=== PATIENT | female | born 1965 | race Caucasian/White ===

== ENCOUNTER 2017-06-01 01:33 | Emergency (ER) | payer BC, OTHER ==
[~2017-06-01 01:33] MED LIST: ALBU6.7H INH; BLOOD THINNER PO; CHOLESTEROL PILL PO; DEPA500T PO; DOXY100T PO; HORMONE PILL PO; NEXI40CA PO; PRED50TA PO
[2017-06-01 01:35] VITALS: BP 136/61; PULSE 56; RESP 16; TEMP 97.5; O2SAT 96
--- NOTE | 2017-06-01 04:51 | PD ---
HPI Chief Complaint: Skin Problem Time Seen by Provider: 04:51 Travel History International Travel<30 days: No Contact w/Intl Traveler<30days: No Traveled to known affect area: No History of Present Illness HPI 52 year-old female presents to the emergency department for evaluation of cat bite to the right forearm and wrist 2 days ago. Patient states last tetanus immunization was 4 years ago. Patient states that she's had subjective tenderness in the right axilla. Patient states she has not noticed any drainage. Patient states that is right-handed. Patient states that her cat is healthy and current on vaccines. PFSH Past Medical History Narrative Medical CAD dyslipidemia asthma sleep apnea tobacco use marijuana use Asthma: Yes High Cholesterol: Yes Coronary Artery Disease: Yes Diminished Hearing: No Gastrointestinal Disorders: Yes (Dyslipidemia) Seizures: Yes Tetanus Vaccination: < 5 Years ?: Not Past Surgical History Appendectomy: Yes Cholecystectomy: Yes Tonsillectomy: Yes (T& A) Other Surgery: Yes (C5-C6 SX) Social History Alcohol Use: No Tobacco Use: Yes (1 PPD) Substance Use: Yes (MARIJUANA) Allergies-Medications (Allergen,Severity, Reaction): Coded Allergies: codeine (Unverified Allergy, Mild, Nausea/Vomiting, 01/01/17) diatrizoate meglumine (Unverified Allergy, Mild, Nausea/Vomiting, 01/01/17) gadobenic acid (Unverified Allergy, Mild, Nausea/Vomiting, 01/01/17) gadodiamide (Unverified Allergy, Mild, Nausea/Vomiting, 01/01/17) gadoteridol (Unverified Allergy, Mild, Nausea/Vomiting, 01/01/17) iodixanol (Unverified Allergy, Mild, Nausea/Vomiting, 01/01/17) iohexol (Unverified Allergy, Mild, Nausea/Vomiting, 01/01/17) Reported Meds & Prescriptions Reported Meds & Active Scripts Active Proventil Hfa (Albuterol Sulfate) 6.7 Gm Aero 2 Puff INH Q4 * SHAKE WELL BEFORE USE * Doxycycline Hyclate 100 Mg Tab 100 Mg PO BID Deltasone (Prednisone) 50 Mg Tab 50 Mg PO DAILY 5 Days Reported [Blood Thinner] PO DAILY [Cholesterol Pill] 1 PO DAILY [Hormone Pill] 1 Tab PO DAILY Nexium (Esomeprazole) 40 Mg Cap 40 Mg PO DAILY Depakote Delayed-Release (Divalproex Sodium) 500 Mg Tabec 500 Mg PO BID Review of Systems Except as stated in HPI: all other systems reviewed are Neg Physical Exam Narrative GENERAL: Well-developed well-nourished female in no acute distress no respiratory distress SKIN: Warm and dry. HEAD: Normocephalic. EYES: No scleral icterus. No injection or drainage. NECK: Supple, trachea midline. No JVD or lymphadenopathy. CARDIOVASCULAR: Regular rate and rhythm without murmurs, gallops, or rubs. RESPIRATORY: Breath sounds equal bilaterally. No accessory muscle use. GASTROINTESTINAL: Abdomen soft, non-tender, nondistended. MUSCULOSKELETAL: No cyanosis, or edema. Attention right forearm 3 puncture wounds dorsal and volar aspect patient has intact thumb apposition capillary refill is brisk and less than 2 seconds per digit sensation is intact patient has decreased range of motion of wrist secondary to pain minimal soft tissue swelling no erythema no palpable axillary lymphadenopathy but tenderness to palpation of the right axilla. BACK: Nontender without obvious deformity. No CVA tenderness. Data Data Last Documented VS Vital Signs Date Time Temp Pulse Resp B/P (MAP) Pulse Ox O2 Delivery O2 Flow Rate FiO2 06/01/17 01:35 97.5 56 16 136/61 (86) 96 Orders Orders Basic Metabolic Panel (Bmp) (06/01/17 04:51) Complete Blood Count With Diff (06/01/17 04:51) Blood Culture (06/01/17 04:51) Wound Culture And Gram Stain (06/01/17 04:51) Iv Access Insert/Monitor (06/01/17 04:51) Sodium Chloride 0.9% Flush (Ns Flush) (06/01/17 05:00) Clindamycin Inj (Cleocin Inj) (06/01/17 05:00) Ketorolac Inj (Toradol Inj) (06/01/17 05:00) Forearm (2vws) (06/01/17 ) Lactic Acid (06/01/17 04:53) Labs Laboratory Tests Test 06/01/17 05:30 White Blood Count 11.6 TH/MM3 Red Blood Count 4.69 MIL/MM3 Hemoglobin 14.7 GM/DL Hematocrit 43.5 % Mean Corpuscular Volume 92.8 FL Mean Corpuscular Hemoglobin 31.3 PG Mean Corpuscular Hemoglobin Concent 33.8 % Red Cell Distribution Width 14.4 % Platelet Count 285 TH/MM3 Mean Platelet Volume 7.8 FL Neutrophils (%) (Auto) 77.4 % Lymphocytes (%) (Auto) 18.0 % Monocytes (%) (Auto) 3.9 % Eosinophils (%) (Auto) 0.4 % Basophils (%) (Auto) 0.3 % Neutrophils # (Auto) 9.0 TH/MM3 Lymphocytes # (Auto) 2.1 TH/MM3 Monocytes # (Auto) 0.5 TH/MM3 Eosinophils # (Auto) 0.0 TH/MM3 Basophils # (Auto) 0.0 TH/MM3 CBC Comment DIFF FINAL Differential Comment Blood Urea Nitrogen 10 MG/DL Creatinine 0.76 MG/DL Random Glucose 105 MG/DL Calcium Level 9.4 MG/DL Sodium Level 139 MEQ/L Potassium Level 3.6 MEQ/L Chloride Level 108 MEQ/L Carbon Dioxide Level 25.4 MEQ/L Anion Gap 6 MEQ/L Estimat Glomerular Filtration Rate 80 ML/MIN Lactic Acid Level 1.6 mmol/L [facility] Medical Decision Making Medical Screen Exam Complete: Yes Emergency Medical Condition: Yes Medical Record Reviewed: Yes Differential Diagnosis Animal bite, puncture wound, retained foreign body, fracture, cellulitis, sepsis Narrative Course IV access obtained patient administered IV antibiotic no drainage from the site patient has intact thumb apposition is wrist and digits are neurovascular tendon intact no axillary lymphadenopathy CBC is automated differential grossly within normal limits chemistries within normal range lactic acid is not elevated imaging study does not reveal any radiopaque foreign body fracture or subcutaneous air Patient is clinically improved after Toradol and Diagnosis Primary Impression: Cat bite of forearm Qualified Codes: S51.851A - Open bite of right forearm, initial encounter; W55.01XA - Bitten by cat, initial encounter Referrals: Primary Care Physician 2 days Patient Instructions: General Instructions Additional Instructions: Elevate right hand and forearm take acetaminophen/Tylenol as needed for fever 100.4F or greater Take ibuprofen 600 mg as often as every 6 hours as needed for fever 100.4F or greater or for pain associated with inflammation Continue your home prescription of Percocet as needed for pain Complete course of antibiotic as prescribed Follow up with the primary care provider call office on Saturday to schedule follow-up appointment Return to the emergency department for any concerns increase pain persistent pain fever or change in condition Med/Other Pt SpecificInfo: Prescription(s) given Scripts Clindamycin (Clindamycin) 150 Mg Cap 300 MG PO Q6H for Infection for 10 Days, #80 CAP 0 Refills Prov: Shaniqua Laird MD 06/01/17 Disposition: 01 DISCHARGE HOME Condition: Stable Shaniqua Laird MD Jun 01, 2017 04:51
[2017-06-01] MEDS ORDERED: SODIUM CHLORIDE 0.9% FLUSH 10 ML FLUSH IVF PRN (05:00)
[2017-06-01] MEDS ORDERED: KETOROLAC TROMETHAMINE 30 MG/ML (IVP) VIAL IV PUSH ONE (05:00)
[2017-06-01] MEDS ORDERED: CLINDAMYCIN INJ 900 MG in SODIUM CHLORIDE 0.9% INJ 100 ML IV ONE (05:00)
--- NOTE | 2017-06-01 05:29 | RADRPT ---
EXAM DATE/TIME: 06/01/2017 05:05 [facility] COMPARISON: No previous studies available for comparison. INDICATIONS : Scratched by cat 2 days ago. MEDICAL HISTORY : Gastroesophageal reflux disease. Hypercholesterolemia. CAD SURGICAL HISTORY : Tonsillectomy. Appendectomy. Cholecystectomy. ENCOUNTER: Initial ACUITY: 2 days PAIN SCORE: 7/10 LOCATION: Right Forearm FINDINGS: Two view examination of the right forearm demonstrates no evidence of fracture or dislocation. Bony mineralization is normal. The soft tissue structures are intact. CONCLUSION: Normal examination for a patient of this age. Jonathan Mccloud MD on June 01, 2017 at 5:25 Board Certified Radiologist. This report was verified electronically.
[2017-06-01 05:49] LABS: BASOPHIL % 0.3 % (0.0-2.0); EOSINOPHIL % 0.4 % (0.0-4.0); HEMATOCRIT 43.5 % (35.0-46.0); HEMOGLOBIN 14.7 GM/DL (11.6-15.3); LYMPHOCYTE # 2.1 TH/MM3 (1.0-4.8); MEAN CELL VOLUME 92.8 FL (80.0-100.0); MEAN CORPUSCULAR HEMOGLOBIN 31.3 PG (27.0-34.0); MEAN CORPUSCULAR HGB CONC 33.8 % (32.0-36.0); MEAN PLATELET VOLUME 7.8 FL (7.0-11.0); MONO % 3.9 % (0.0-8.0); MONOCYTE # 0.5 TH/MM3 (0-0.9); NEUT % 77.4 % (16.0-70.0); PLATELET COUNT 285 TH/MM3 (150-450); RED BLOOD COUNT 4.69 MIL/MM3 (4.00-5.30); RED CELL DISTRIBUTION WIDTH 14.4 % (11.6-17.2); WHITE BLOOD COUNT 11.6 TH/MM3 (4.0-11.0)
[2017-06-01 06:00] LABS: BICARBONATE 25.4 MEQ/L (21.0-32.0); CALCIUM 9.4 MG/DL (8.5-10.1); CREATININE 0.76 MG/DL (0.50-1.00)
[2017-06-01] MEDS ORDERED: CLIN150C14 PO (06:37)
== END 2017-06-01 07:08 | disposition home or self-care (01) ==
LOC: NEPC 01:33
DX: S51.851A Open bite of right forearm, initial encounter (principal); I25.10 Atherosclerotic heart disease of native coronary artery without angina pectoris; E78.5 Hyperlipidemia, unspecified; J45.909 Unspecified asthma, uncomplicated; E78.00 Pure hypercholesterolemia, unspecified; R56.9 Unspecified convulsions; F17.200 Nicotine dependence, unspecified, uncomplicated; W55.01XA Bitten by cat, initial encounter; Z79.899 Other long term (current) drug therapy
CPT/HCPCS: 73090; 80048; 83605; 85025; 86403; 87040; 87070; 87185; 96374; 99284; J1885